=== PATIENT | male | born 1980 | race Caucasian/White ===

== ENCOUNTER 2017-11-13 17:59 | Emergency (ER) | payer SELFPAY ==
[2017-11-13 18:30] LABS: BASOPHILS 0.1 % (0-2); EOSINOPHILS 0.1 % (0-7); HEMATOCRIT 30.4 % (42.0-54.0); HEMOGLOBIN 8.9 g/dL (13.5-17.5); IMMATURE GRANULOCYTES 1.8 % (0-5); LYMPHOCYTES 10.3 % (15-50); MCH 22.7 pg (26.0-34.0); MCHC 29.3 g/dL (31.0-37.0); MCV 77.6 fL (80.0-100.0); MONOCYTES 18.1 % (2-11); NEUTROPHILS 69.6 % (40-80); PLATELET COUNT 211 10x3/uL (130-400); RBC 3.92 10x6/uL (4.20-6.10); RDW 17.9 % (11.5-14.5); WBC 9.4 10x3/uL (4.8-10.8)
[2017-11-13 18:43] LABS: APTT 20.4 SECONDS (22.8-39.4); INR 1.09 (0.85-1.17); PROTIME 13.7 SECONDS (11.6-15.0)
[2017-11-13 18:44] LABS: D-DIMER-QUANTITATIVE < 0.27 ug/mLFEU (0.20-0.54)
[2017-11-13 19:15] LABS: ALBUMIN 3.5 g/dL (3.4-5.0); ALKALINE PHOSPHATASE 66 U/L (46-116); ALT (SGPT) 26 U/L (10-68); CALC OSMOLALITY 283 mosm/kg (275-300); CALCIUM 8.9 mg/dL (8.5-10.1); CARBON DIOXIDE 31.2 mmol/L (21.0-32.0); CHLORIDE - SERUM 105 mmol/L (98-107); CREATININE - SERUM 0.9 mg/dL (0.6-1.3); GLUCOSE 88 mg/dL (74-106); POTASSIUM - SERUM 3.9 mmol/L (3.5-5.1); PROTEIN - SERUM 6.2 g/dL (6.4-8.2); SODIUM 142 mmol/L (136-145); UREA NITROGEN 18 mg/dL (7-18); eGFR NON AFRICAN AMERICAN > 90 mL/min (90-120)
[2017-11-13 19:28] LABS: CKMB 0.9 U/L (0.0-3.6); CREATINE KINASE 48 UL (21-232); PRO BNP 237 pg/mL (0-125); TROPONIN-I < 0.017 ng/mL (0.000-0.060)
[2017-11-14] MEDS ORDERED: LOVENOX120 MG/0.8 SC (15:59)
[2017-11-14] MEDS ORDERED: XANAX2 MG PO (16:00)
[2017-11-14] MEDS ORDERED: PROTONIX40 MG PO (16:00)
[2017-11-15 13:39] VITALS: BMI 35.6
== END 2017-11-13 20:59 | disposition left against medical advice (07) ==
LOC: D.ER 17:59
PROVIDERS: Family Medicine
DX: R07.89 Other chest pain (principal); Z91.19 Patient's noncompliance with other medical treatment and regimen; D68.51 Activated protein C resistance

== ENCOUNTER 2017-11-14 07:40 | Inpatient (IN) | payer SELFPAY ==
[~2017-11-14] VITALS: Ht 180.3 cm; Wt 116.0 kg
--- NOTE | ~2017-11-14 | OP ---
PATIENT NAME: HELIO HERRING MEDICAL RECORD: [id number] :82 LOCATION:[id number] ADMISSION DATE:11/14/17 SURGEON: DIANA HAYWARD MD DATE OF OPERATION: 11/15/2017 PREOPERATIVE DIAGNOSES: 1. Need for IV access. 2. Factor V Leiden deficiency. 3. Hematemesis. 4. History of pulmonary thromboembolus. 5. History of testicular cancer. POSTOPERATIVE DIAGNOSES: 1. Need for IV access. 2. Factor V Leiden deficiency. 3. Hematemesis. 4. History of pulmonary thromboembolus. 5. History of testicular cancer. PROCEDURE: Left IJ triple-lumen central venous line placement. SURGEON: Diana Hayward MD REPORT OF PROCEDURE: The patient's left neck and chest were prepped and draped in sterile fashion. Using ultrasound guidance, the left internal jugular vein was visualized, 5 cc of 1% lidocaine was infused into the subcutaneous tissues. Under ultrasound guidance, a needle was used to cannulate the left subclavian vein and a guidewire was advanced with ease. Over this wire, a dilator was placed followed by the triple lumen catheter. The catheter aspirated nonpulsatile dark blood and flushed easily in all 3 ports. This was sutured into place with a single 3-0 nylon and dressed appropriately. COMPLICATIONS: None. CONDITION: Stable. ANESTHESIA: Local. BLOOD LOSS: Minimal. Procedure done at the bedside. TRANSINT:[id number] Voice Confirmation ID: [id number] DOCUMENT ID: [id number] DIANA HAYWARD MD at 1309 CC: [id number] DICTATION DATE: 11/15/17 1332 KENO MANAGER: 11/15/17 1352 DIS IN 11/18/17 [place] [id number] [place] [id number]
--- NOTE | ~2017-11-14 | CN ---
PATIENT NAME:HELIO CAIN MEDICAL RECORD: [id number] : 82 LOCATION:[facility] ADMIT DATE: 11/14/17 ACCOUNT: [id number] CONSULTING PHYSICIAN: LOIDA FISCHER MD REFERRING PHYSICIAN: ALEX MEMBRENO DO DATE OF CONSULTATION: 11/14/2017 CONSULT REQUESTING PHYSICIAN: Alex Membreno DO REASON FOR CONSULTATION: Hemoptysis, nausea, vomiting, coffee-ground emesis. HISTORY OF PRESENT ILLNESS: Mr. Cain is a 37-year-old gentleman who has a history of a hypercoagulable state with factor V Leiden mutation. 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 His PT/INR is managed by his PCP. Recently, he has low PT/INR. He was started on Lovenox. According to the patient whenever he goes on Lovenox then he has hemoptysis. He denies any fever and chill, no night sweats, no cough. He will cough off dark colored blood. According to the patient, is not persistent, but whenever he is on Lovenox, he will be spitting blood. If his INR is therapeutic, he would not aspirate any blood. Also his IVC filter change times 4 with a clot formation. Now, he believed that his IVC filter has closed again though the patient has no dependent edema. Denies any chest pain. He is also coughing ground-glass emesis. This had brought him to the ER. REVIEW OF SYSTEMS: Mainly in the history of present illness. MEDICATIONS: On Intucell is reviewed. PERSONAL AND SOCIAL HISTORY: The patient is a nonsmoker, nondrinker. FAMILY HISTORY: Not significant for the PE and DVT. ALLERGIES: HE IS ALLERGIC TO IV DYE, NONSTEROIDAL ANTI-INFLAMMATORY MEDICATION, AND SULFA. PHYSICAL EXAMINATION: GENERAL: Now, the patient is lying comfortably in bed. He is not in acute distress. VITAL SIGNS: The blood pressure is 168/92, pulse is 78, respirations 18, temperature 98.2, SPO2 is 100% on room air. HEENT: Conjunctivae is pink. Sclerae not icteric. NECK: Supple, no JVD. CHEST: Excursion is minimal on both sides. There is no wheeze, no rales. HEART: Rhythm regular, normal sound, no murmur. ABDOMEN: Soft, bowel sounds present. No hepatosplenomegaly. RECTAL: Deferred. EXTREMITIES: No cyanosis, no clubbing, no pedal edema. SKIN: Warm, normal turgor. CENTRAL NERVOUS SYSTEM: The patient is awake and alert. There are no obvious cranial nerve abnormality. The gait was not tested. LABORATORY DATA: The D-dimer is negative. CBC: WBC is 7.6, hemoglobin is 8.7, hematocrit 29.9, the platelet count 209. Chest radiograph: There is no acute infiltrate. The VQ scan is low probability for the PE. CONSULT REPORT [id number] HELIO CAIN IMPRESSION: 1. Hemoptysis, rule out pulmonary embolism, possible secondary to bronchitis, but the patient said he has no recent history of bronchitis. 2. Hypercoagulable state. 3. Coffee-ground vomiting, possible upper gastrointestinal bleed. 4. Chronic anticoagulation. 5. History of saddle embolus and history of inferior vena cava thrombosis and the patient has thrombectomy in the past. 6. Dyspnea on exertion. RECOMMENDATION: 1. Start on Lovenox 1 mg/kg 110 mg b.i.d. 2. CTA of the chest. We will premedicate the patient. Consult Dr. Kennedy. Consult interventional radiology. Consult GI. Detailed discussion with Dr. Oneal if the patient's hemoptysis and hematemesis is getting worse. The patient is a good candidate to transfer him to the [facility] in [place]. Dr. Membreno, thank you for involving me in the care of Mr. Cain. TRANSINT:[id number] Voice Confirmation ID: [id number] DOCUMENT ID: [id number] LOIDA FISCHER MD at 1806 CC: [id number] DICTATION DATE: 11/14/171804 HIDE BUYER: 11/14/171935 DIS IN 11/18/17 [place] [id number] [place] [address]
[2017-11-14 09:04] LABS: ALBUMIN 3.3 g/dL (3.4-5.0); ALKALINE PHOSPHATASE 66 U/L (46-116); ALT (SGPT) 27 U/L (10-68); BILIRUBIN - TOTAL 0.63 mg/dL (0.2-1.3); CALC OSMOLALITY 289 mosm/kg (275-300); CALCIUM 8.8 mg/dL (8.5-10.1); CARBON DIOXIDE 30.2 mmol/L (21.0-32.0); CHLORIDE - SERUM 107 mmol/L (98-107); CREATININE - SERUM 0.7 mg/dL (0.6-1.3); GLUCOSE 96 mg/dL (74-106); PROTEIN - SERUM 5.6 g/dL (6.4-8.2); SODIUM 145 mmol/L (136-145); UREA NITROGEN 16 mg/dL (7-18); eGFR NON AFRICAN AMERICAN > 90 mL/min (90-120)
[2017-11-14 09:05] LABS: POTASSIUM - SERUM 4.5 mmol/L (3.5-5.1)
[2017-11-14 09:15] LABS: AMYLASE - SERUM 33 U/L (25-115); CKMB 0.3 U/L (0.0-3.6); CREATINE KINASE 34 UL (21-232); LIPASE 171 U/L (73-393); MAGNESIUM - SERUM 2.2 mg/dL (1.8-2.4)
[2017-11-14 09:19] LABS: TROPONIN-I < 0.017 ng/mL (0.000-0.060)
[2017-11-14 09:49] LABS: BASOPHILS 0 % (0-2); EOSINOPHILS 0.4 % (0-7); HEMATOCRIT 29.9 % (42.0-54.0); HEMOGLOBIN 8.7 g/dL (13.5-17.5); IMMATURE GRANULOCYTES 0.5 % (0-5); LYMPHOCYTES 20.3 % (15-50); MCH 22.4 pg (26.0-34.0); MCHC 29.1 g/dL (31.0-37.0); MCV 76.9 fL (80.0-100.0); MEAN PLATELET VOLUME 9.8 fL (7.4-10.4); MONOCYTES 5.3 % (2-11); NEUTROPHILS 73.5 % (40-80); PLATELET COUNT 209 10x3/uL (130-400); RBC 3.89 10x6/uL (4.20-6.10); RDW 17.7 % (11.5-14.5); WBC 7.6 10x3/uL (4.8-10.8)
[2017-11-14 10:02] LABS: INR 1.11 (0.85-1.17); PROTIME 13.9 SECONDS (11.6-15.0)
[2017-11-14 10:03] LABS: APTT 24.5 SECONDS (22.8-39.4); D-DIMER-QUANTITATIVE < 0.27 ug/mLFEU (0.20-0.54)
[2017-11-14] MEDS ORDERED: LOVENOX120 MG/0.8 SC (15:59)
[2017-11-14] MEDS ORDERED: PROTONIX40 MG PO (16:00)
[2017-11-14] MEDS ORDERED: XANAX2 MG PO (16:00)
[2017-11-14 16:07] VITALS: BP 168/92
[2017-11-14 17:13] VITALS: BMI 35.7
[2017-11-14 17:47] LABS: % SATURATION 4 % (15-55); IRON 22 ug/dl (35-150); TOTAL IRON BIND CAPACITY 467 ug/dl (260-445); UNSAT IRON BIND CAPACITY 445 ug/dl (150-375)
[2017-11-14 21:15] VITALS: BP 130/78
[2017-11-15 00:45] VITALS: BP 127/80
[2017-11-15 04:00] VITALS: BP 148/78
[2017-11-15 12:13] VITALS: BP 142/95
[2017-11-15 13:39] VITALS: Ht 180.3 cm; Wt 116.0 kg
[2017-11-15 14:20] LABS: BASOPHILS 0 % (0-2); EOSINOPHILS 0 % (0-7); HEMATOCRIT 29.3 % (42.0-54.0); HEMOGLOBIN 8.6 g/dL (13.5-17.5); IMMATURE GRANULOCYTES 0.4 % (0-5); LYMPHOCYTES 9.8 % (15-50); MCH 22.3 pg (26.0-34.0); MCHC 29.4 g/dL (31.0-37.0); MCV 75.9 fL (80.0-100.0); MEAN PLATELET VOLUME 9.8 fL (7.4-10.4); MONOCYTES 0.3 % (2-11); NEUTROPHILS 89.5 % (40-80); PLATELET COUNT 222 10x3/uL (130-400); RBC 3.86 10x6/uL (4.20-6.10); RDW 17.3 % (11.5-14.5); WBC 7.7 10x3/uL (4.8-10.8)
[2017-11-15 14:46] LABS: ALBUMIN 3.3 g/dL (3.4-5.0); ALKALINE PHOSPHATASE 69 U/L (46-116); ALT (SGPT) 25 U/L (10-68); BILIRUBIN - TOTAL 0.36 mg/dL (0.2-1.3); CALC OSMOLALITY 289 mosm/kg (275-300); CALCIUM 9.1 mg/dL (8.5-10.1); CARBON DIOXIDE 29.3 mmol/L (21.0-32.0); CHLORIDE - SERUM 107 mmol/L (98-107); CREATININE - SERUM 0.7 mg/dL (0.6-1.3); GLUCOSE 122 mg/dL (74-106); POTASSIUM - SERUM 4.1 mmol/L (3.5-5.1); SODIUM 145 mmol/L (136-145); THYROID STIMULATING HORMONE 0.13 uIU/mL (0.36-3.74); UREA NITROGEN 13 mg/dL (7-18); eGFR NON AFRICAN AMERICAN > 90 mL/min (90-120)
[2017-11-15 16:40] VITALS: BP 144/94
[2017-11-15 20:00] VITALS: BP 146/87
[2017-11-15 20:06] VITALS: BP 148/90
[2017-11-16 03:52] VITALS: BP 158/99
[2017-11-16 08:10] VITALS: BP 163/85
[2017-11-16 10:13] LABS: HEPATITIS C ANTIBODY <0.1 (0.0-0.9)
[2017-11-16 13:06] VITALS: BP 142/96
[2017-11-16 16:04] VITALS: BP 150/100
[2017-11-16 19:58] VITALS: BP 155/103
[2017-11-17 00:04] VITALS: BP 156/86
[2017-11-17 04:00] VITALS: BP 154/74
[2017-11-17 06:40] LABS: BASOPHILS 0 % (0-2); EOSINOPHILS 0 % (0-7); HEMATOCRIT 28.4 % (42.0-54.0); HEMOGLOBIN 8.2 g/dL (13.5-17.5); IMMATURE GRANULOCYTES 1.3 % (0-5); LYMPHOCYTES 2.8 % (15-50); MCH 22.3 pg (26.0-34.0); MCHC 28.9 g/dL (31.0-37.0); MCV 77.2 fL (80.0-100.0); MEAN PLATELET VOLUME 10.4 fL (7.4-10.4); MONOCYTES 7.9 % (2-11); RBC 3.68 10x6/uL (4.20-6.10); RDW 17.9 % (11.5-14.5)
[2017-11-17 06:44] LABS: PLATELET COUNT 268 10x3/uL (130-400)
[2017-11-17 07:37] LABS: ALBUMIN 3.4 g/dL (3.4-5.0); ALKALINE PHOSPHATASE 74 U/L (46-116); ALT (SGPT) 24 U/L (10-68); CALC OSMOLALITY 295 mosm/kg (275-300); CALCIUM 8.7 mg/dL (8.5-10.1); CARBON DIOXIDE 30.3 mmol/L (21.0-32.0); CHLORIDE - SERUM 108 mmol/L (98-107); CREATININE - SERUM 0.7 mg/dL (0.6-1.3); GLUCOSE 129 mg/dL (74-106); POTASSIUM - SERUM 3.8 mmol/L (3.5-5.1); PROTEIN - SERUM 5.7 g/dL (6.4-8.2); SODIUM 146 mmol/L (136-145); eGFR NON AFRICAN AMERICAN > 90 mL/min (90-120)
[2017-11-17 07:39] LABS: UREA NITROGEN 21 mg/dL (7-18)
[2017-11-17 16:55] VITALS: BP 138/78
[2017-11-17 20:00] VITALS: BP 126/71
[2017-11-18 04:00] VITALS: BP 165/86
[2017-11-18 06:09] LABS: BASOPHILS 0.1 % (0-2); EOSINOPHILS 0 % (0-7); HEMATOCRIT 28.5 % (42.0-54.0); HEMOGLOBIN 8.1 g/dL (13.5-17.5); IMMATURE GRANULOCYTES 3.3 % (0-5); LYMPHOCYTES 15.5 % (15-50); MCH 22.3 pg (26.0-34.0); MCHC 28.4 g/dL (31.0-37.0); MCV 78.3 fL (80.0-100.0); MEAN PLATELET VOLUME 10.3 fL (7.4-10.4); MONOCYTES 7.6 % (2-11); NEUTROPHILS 73.5 % (40-80); PLATELET COUNT 231 10x3/uL (130-400); RBC 3.64 10x6/uL (4.20-6.10); RDW 17.9 % (11.5-14.5); WBC 8.5 10x3/uL (4.8-10.8)
[2017-11-18 06:42] LABS: ALBUMIN 3.1 g/dL (3.4-5.0); ALKALINE PHOSPHATASE 63 U/L (46-116); CALC OSMOLALITY 291 mosm/kg (275-300); CALCIUM 8.6 mg/dL (8.5-10.1); CARBON DIOXIDE 29.2 mmol/L (21.0-32.0); CHLORIDE - SERUM 107 mmol/L (98-107); GLUCOSE 113 mg/dL (74-106); POTASSIUM - SERUM 3.4 mmol/L (3.5-5.1); PROTEIN - SERUM 5.4 g/dL (6.4-8.2); SODIUM 145 mmol/L (136-145); UREA NITROGEN 19 mg/dL (7-18)
[2017-11-18 07:00] LABS: ALT (SGPT) 44 U/L (10-68); CREATININE - SERUM 0.9 mg/dL (0.6-1.3); eGFR NON AFRICAN AMERICAN > 90 mL/min (90-120)
[2017-11-18 08:06] VITALS: BP 141/96
[2017-11-18 13:15] VITALS: BP 146/99
[2017-11-18] MEDS ORDERED: PROTONIX40 MG PO (14:57)
[2017-11-18] MEDS ORDERED: COUMADIN5 MG PO (14:58)
[2017-11-18] MEDS ORDERED: FERROUS SULFAT325 MG PO (15:00)
[2017-11-19 08:15] LABS: ALPHA FETOPROTEIN -(TUMOR MRK) 1.1 ng/mL (0.0-8.3)
[2017-11-28 20:09] LABS: FACTOR II DNA ANALYSIS Negative (())
== END 2017-11-18 18:24 | disposition home or self-care (01) | DRG 378 ==
LOC: D.ER 07:40 → D.EDHOLD 12:49 → D.MS 12:49
PROVIDERS: Family Medicine; Internal Medicine Gastroenterology; Internal Medicine Hematology & Oncology
PROC: 02HV33Z Insertion of Infusion Device into Superior Vena Cava, Percutaneous Approach (ICD-10-PCS; 2017-11-15)
PROC: B544ZZA Ultrasonography of Left Jugular Veins, Guidance (ICD-10-PCS; 2017-11-15)
PROC: 0DB78ZX Excision of Stomach, Pylorus, Via Natural or Artificial Opening Endoscopic, Diagnostic (ICD-10-PCS; principal; 2017-11-15 07:00)
DX: K25.4 Chronic or unspecified gastric ulcer with hemorrhage (principal); D62 Acute posthemorrhagic anemia; D68.51 Activated protein C resistance; E66.01 Morbid (severe) obesity due to excess calories; Z68.35 Body mass index [BMI] 35.0-35.9, adult; Z85.47 Personal history of malignant neoplasm of testis; D50.9 Iron deficiency anemia, unspecified; Z86.711 Personal history of pulmonary embolism